=== PATIENT | male | born 1970 | race Two or more races ===

== ENCOUNTER 2019-06-30 11:37 | Emergency (ER) | payer MEDICAID, OTHER ==
[~2019-06-30] VITALS: Ht 170.2 cm; Wt 95.3 kg
[2019-06-30 11:45] VITALS: BP 142/95
--- NOTE | 2019-06-30 12:06 | NUR ---
Patient discharged to home in stable condition. Written and verbal after care instructions given. Patient verbalizes understanding of instruction. Pt ambulatory with a steady gait
== END 2019-06-30 12:07 | disposition home or self-care (01) ==
LOC: ER 11:39
DX: R21 Rash and other nonspecific skin eruption (principal)

== ENCOUNTER 2024-10-22 00:32 | Emergency (ER) | payer OTHER ==
[~2024-10-22] VITALS: Ht 172.7 cm; Wt 83.9 kg
[2024-10-22 00:54] VITALS: BP 146/107; TEMP 97.9
[2024-10-22] MEDS ORDERED: AMOX500C2 PO (01:06)
[2024-10-22 01:16] VITALS: O2SAT 98
== END 2024-10-22 01:17 | disposition home or self-care (01) ==
LOC: ER 00:36
DX: H72.92 Unspecified perforation of tympanic membrane, left ear (principal); I10 Essential (primary) hypertension